=== PATIENT | male | born 1980 | race Caucasian/White ===

== ENCOUNTER → 2016-09-29 | Outpatient (CLI) | payer OTHER ==
--- NOTE | 2016-09-29 12:13 | REP ---
MRI BRAIN AND INTERNAL AUDITORY CANALS WITHOUT AND WITH IV GADOLINIUM: HISTORY: Left-sided hearing loss. Sensorineural hearing loss left ear. No comparison imaging. TECHNIQUE: Axial and coronal imaging planes are utilized. T1 and T2-weighted sequences include turbo spin echo, spin echo, FLAIR, diffusion weighted scans, and 3D gradient echo sequences. Post gadolinium enhanced images are included in the axial and coronal plane. Gadolinium enhancement dose: 18.5 mL of intravenous ProHance. MRI FINDINGS: No bony calvarial lesion is seen. No intraorbital abnormality is appreciated. There is a mucous retention cyst in the left sphenoid sinus measuring 0.9 cm in diameter. No other MR evidence of paranasal sinus disease. The lateral, third, fourth ventricles are normal in size and position. No significant white matter lesion is appreciated. Diffusion weighted scan show no evidence to suggest acute ischemia. There is no evidence of CP angle cistern mass. Seventh and eighth nerves are seen in normal size symmetric internal auditory canals. Post gadolinium enhanced images show no abnormal intercanalicular or extracanalicular enhancement in either IAC. Vestibular and cochlear apparatus appear unremarkable bilaterally. No middle ear fluid or mastoid fluid is appreciated. Postcontrast images show no abnormal contrast enhancement. IMPRESSION: Negative internal auditory canal and brain MRI study. Signed by Anand Irving MD 09/29/2016 12:51 P
== END ==
LOC: M RAD 08:54
PROVIDERS: ATTEND Otolaryngology
DX: H90.42 Sensorineural hearing loss, unilateral, left ear, with unrestricted hearing on the contralateral side (principal)
CPT/HCPCS: 70553; A9576